=== PATIENT | male | born 2000 | race Caucasian/White ===

== ENCOUNTER 2019-03-27 14:17 | Outpatient (CLI) | payer OTHER ==
[2019-03-27 15:31] LABS: #Basophils 0.1 thou/uL (0.0-0.2); #Eosinphils 0.1 thou/uL (0.0-0.7); #Lymphocytes 1.9 thou/uL (1.20-3.40); #Monocytes 0.7 thou/uL (0.11-0.59); #Neutrophils 6.1 thou/uL (1.40-6.50); %Basophils 1.2 % (0.0-1.0); %Eosinophils 1.4 % (0.0-10.0); %Lymphocytes 21.1 % (21.0-51.0); %Monocytes 8.3 % (0.0-10.0); Hemoglobin 15.9 g/dL (14.0-18.0); Mean Corpuscular Hemoglobin 29.8 pg (27.0-31.0); Mean Corpuscular Volume 85.2 fL (78.0-98.0); Mean Platelet Volume 7.2 fL (7.4-10.4); Platelet Count 404 thou/uL (130-400); RBC Distribution Width 11.4 % (11.5-14.5); Red Blood Cell (RBC) Count 5.34 mill/uL (4.70-6.10)
[2019-03-27 15:53] LABS: Anion Gap 13 mmol/L (10-20); BUN (Urea Nitrogen) 8 mg/dL (8.9-20.6); Calc. Creatinine Clearance 0 mL/min (70-130); Calcium 9.8 mg/dL (7.8-10.44); Carbon Dioxide 27 mmol/L (22-29); Chloride 104 mmol/L (98-107); Estimated GFR-MDRD Greater than 90; Glucose 94 mg/dL (70-105); Potassium 3.8 mmol/L (3.5-5.1); Sodium 140 mmol/L (136-145)
== END 2019-03-27 14:18 | disposition home or self-care (01) ==
LOC: LABBT 14:17
PROVIDERS: ATTEND Specialist
DX: Z01.812 Encounter for preprocedural laboratory examination (principal); L05.91 Pilonidal cyst without abscess
CPT/HCPCS: 80048; 85025

== ENCOUNTER 2019-03-31 06:45 | Day surgery (SDC) | payer OTHER ==
[2019-03-27 14:40] VITALS: BMI 31.0
--- NOTE | 2019-03-28 09:15 | HP ---
HISTORY OF PRESENT ILLNESS: Zan Miller is a 19-year-old male from [place] seen in [place] by Dr. Galaviz, presents with a pilonidal cyst present for more than three months. He has tried to sterilize needles in the microwave to drain it. He is referred for treatment. 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 He has been on Keflex, finished that course. I have prescribed Bactrim DS p.o. b.i.d. for the next 10 days. We will plan excision of pilonidal cyst and Z-plasty closure as an outpatient. Procedure explained to him. Questions answered. Z-plasty closure planned, possible drain use discussed with the patient. He understands he will need to be off work and relatively inactive around the house for 2 to 3 weeks postoperatively. He was apprised of the risks of infection, bleeding, reoperation, wound healing problems associated with pilonidal cyst resection, and consents, questions answered. TOBACCO: None. ALCOHOL: None. MEDICATIONS: 1. Metoprolol daily. 2. Keflex, just finished a course. PAST SURGICAL HISTORY: Noncontributory. PAST MEDICAL HISTORY: History of hypertension. SOCIAL HISTORY: The patient lives with his grandparents in [place]. 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 PHYSICAL EXAMINATION: VITAL SIGNS: Weight 233 pounds, height 5 feet 9 inches, BMI 34, blood pressure 133/77, heart rate 92, temperature 98 degrees. HEAD, EARS, EYES, NOSE, AND THROAT: Unremarkable. LUNGS: Clear to auscultation. CARDIAC: Regular rate and rhythm without murmur or gallop. ABDOMEN: Soft, nontender. EXTREMITIES: Unremarkable. The patient has changes of pilonidal cyst with multiple clefts and sinuses and discharge from the midline sinuses. ASSESSMENT AND PLAN: Pilonidal cyst. PLAN: Excision with Z-plasty closure. He understands risks and benefits, consents, questions answered. Job ID: [id number]
[2019-03-31] MEDS ORDERED: Ketorolac Tromethamine 30 MG/ML VIAL ONE (07:36)
[2019-03-31] MEDS ORDERED: metroNIDAZOLE 500 MG/100 ML BAG ONE (07:36)
[2019-03-31] MEDS ORDERED: Vancomycin HCl 500 MG in Sodium Chloride 0.9% 100 ML IVPB SCH (08:00)
[2019-03-31] MEDS ORDERED: Vancomycin HCl 1 GM in Premix Bag 1 BAG IVPB SCH (08:45)
[2019-03-31] MEDS ORDERED: Methylene Blue 50 MG/10 ML AMPUL ONE (09:18)
[2019-03-31] MEDS ORDERED: Lidocaine 1% w/Epinephrine 1:100K 20 ML VIAL ONE (09:18)
[2019-03-31] MEDS ORDERED: Bupivacaine PF 0.5% 30 ML VIAL ONE (09:18)
[2019-03-31] MEDS ORDERED: PROPOFOL 200 MG/20 ML VIAL ONE (09:38)
[2019-03-31] MEDS ORDERED: Lidocaine 1% PF 5 ML VIAL ONE (09:38)
[2019-03-31] MEDS ORDERED: Rocuronium Bromide 10 MG/ML (10ML VIAL) ONE (09:38)
[2019-03-31] MEDS ORDERED: Fentanyl 100 MCG/2 ML VIAL ONE (10:12)
[2019-03-31] MEDS ORDERED: Meperidine HCl/PF 25 MG/ML VIAL ONE (12:11)
[2019-03-31] MEDS ORDERED: Metoprolol Tartrate 5 MG/5 ML VIAL ONE (12:26)
--- NOTE | 2019-03-31 16:50 | OP ---
DATE OF PROCEDURE: 03/31/2019 PREOPERATIVE DIAGNOSIS: Pilonidal cyst with extensive disease in multiple sinus tracts. POSTOPERATIVE DIAGNOSIS: Pilonidal cyst with extensive disease in multiple sinus tracts. PROCEDURE PERFORMED: Excision of pilonidal cyst with Z-plasty closure, #10 round TERRI drain, plastic closure. ANESTHESIA: General, local with 0.5% Marcaine, 30 mL, mixed with 1% Xylocaine with epinephrine, 30 mL, total of 60 mL volume used. DESCRIPTION OF PROCEDURE: The patient was taken to the operating room, where under general anesthesia in a prone position, perisacral area was clipped of hair, prepared with ChloraPrep, and draped in routine fashion. Incision was made elliptically, excising the pilonidal cyst disease, excising all disease. No sinus tracts across. The specimen submitted to Pathology. Hemostasis was gained with cautery. Tape buttock retraction released and markings made for Z-plasty closure and flaps formed with sharp and cutting cautery and cautery used for hemostasis. Good hemostasis obtained. A #10 round TERRI drain placed, secured with 3-0 nylon suture. Mastisol and Opsite applied. Drain had connected to the bulb. The subcutaneous tissue was approximated with continuous suture of 2-0 Monocryl, skin with subdermal 4-0 Monocryl, and [place] glue. Sterile dressings applied. The patient tolerated the procedure well. Job ID: [id number]
== END 2019-03-31 14:08 | disposition home or self-care (01) ==
LOC: SDC 06:45
PROVIDERS: ATTEND Specialist
PROC: 0JB90ZZ Excision of Buttock Subcutaneous Tissue and Fascia, Open Approach (ICD-10-PCS; principal; 2019-03-31)
DX: L05.91 Pilonidal cyst without abscess (principal); I10 Essential (primary) hypertension; Z79.899 Other long term (current) drug therapy
CPT/HCPCS: 88304; J0131; J1885; J2001; J2175; J2704; J3010; J3370; J3490; Q9968; S0020